=== PATIENT | female | born 1975 | race Caucasian/White ===

== ENCOUNTER 2019-01-24 14:21 | Inpatient (IN) | payer BC ==
[~2019-01-24] VITALS: Ht 170.2 cm; Wt 80.1 kg
--- NOTE | ~2019-01-24 | DS ---
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 She has had four previous episodes of acute diverticulitis and one time requiring hospitalization. This has been proven by CT scan findings in the past. She has undergone colonoscopy by Dr. Mynor Lutz approximately 2 years ago, confirming diverticulosis and no evidence of polyps or other problems. She recently had the onset of left lower abdominal pain, very significant and severe with impaired ability to have oral intake. She got to the point where she could really not even tolerate liquids, let alone soft food. She presented to emergency room where she was evaluated by Dr. Blankenship. She is noted to have dehydration clinically and tenderness in the left lower abdomen and CT scan was performed showing acute diverticulitis, but no sign of abscess. She is admitted for further evaluation and care. PERTINENT PHYSICAL EXAMINATION: GENERAL: Showed a pleasant white woman who looks clinically very dehydrated. HEENT: Tongue is markedly dry. Trachea is midline. CHEST: Clear. HEART: Regular without murmur. ABDOMEN: Mildly obese and mildly distended. She had marked tenderness in the left mid abdomen. No sign of ascites proper. LABORATORY DATA: White count was 10.7. Beta hCG negative. Hematocrit 39.1. Urinalysis normal. CT scan showed no sign of peridiverticular abscess, but a thickened area of the mid descending colon as well as inflammation of the mesentery itself. HOSPITAL COURSE: She was admitted and given intravenous antibiotics, Levaquin and Flagyl. Aggressive fluid resuscitation was undertaken as well. She did have marked improvement even on the first day. She still had tenderness of the left abdomen. Her white count was down to 6.7. She was allowed clear liquids ,which she tolerated well and advanced to a low-fiber diet. She was transitioned to oral antibiotic, Flagyl and Levaquin. She did have some developing thrush and was treated with Diflucan 200 mg tablet. By time of discharge, her pain is markedly improved. Her tenderness has essentially resolved. We had a discussion regarding the consideration that this represents her fifth episode PATIENT NAME: PAYAL LOJA DISCHARGE SUMMARY DATE OF : 79 REPORT #: [id number] PHYSICIAN: OLU ALCANTARA MD PCP: YOLANDE LA PAC REPORT IS CONFIDENTIAL AND NOT TO BE RELEASED WITHOUT AUTHORIZATION [facility] [address] [place], [place] [address] Draft of significant diverticulitis and a consideration for elective left colectomy. She is very interested in that idea. We will allow her diverticular process to settle and I will see her back in the office in a few weeks. She will maintain a low-fiber diet for two weeks. She will have a few more days of antibiotics as well. If she has problems in the meantime, she will let me know at once. DISCHARGE MEDICATION: Include: 1. Levaquin 500 mg p.o. daily #10. 2. Diflucan 200 mg tablets one tablet p.o. daily #5. 3. Flagyl 250 mg p.o. t.i.d. #15. 4. Tylenol 650 p.o. q.6 hours as needed #30, refill zero. 5. She will continue with Celexa one 10 mg tablet daily, trazodone 100 mg half tab at bedtime if needed for sleep, and albuterol inhaler two puffs q.6 hours as needed for shortness of breath. She is advised that there may be some interaction with trazodone and Diflucan and to avoid the trazodone if possible for the time being. DISCHARGE DIAGNOSIS: Acute recurrent diverticulitis, left colon. MD JAGDISH Rogers/REX /[id number] cc: Yolande MONTES Copies: ~ PATIENT NAME: PAYAL LOJA DISCHARGE SUMMARY DATE OF : 79 REPORT #: [id number] PHYSICIAN: OLU ALCANTARA MD PCP: YOLANDE LA PAC REPORT IS CONFIDENTIAL AND NOT TO BE RELEASED WITHOUT AUTHORIZATION
[~2019-01-24 14:21] MED LIST: ADDERALL 5 MG TA5 MG PO; ADVAIR 250-501 EACH INH; AZITHROMYCIN500 MG PO; CELEXA10 MG PO; CIPRO500 MG PO; COLACE100 MG PO; FLAGYL500 MG PO; PERCOCET 5-3251 EACH PO; QVAR7.3 G1 INH; SPACE CHAMBER1 EACH MC
[2019-01-24] MEDS ORDERED: TRAZODONE HCL100 MG PO (14:38)
--- NOTE | 2019-01-24 20:30 | NUR ---
PT ARRIVED TO FLOOR VIA WHEELCHAIR, TRANSFERED TO BED WITHOUT ASSISTANCE. PT REPORTS PAIN, 3/10, STATES THAT THIS IS TOLERABLE. PT REPORTS NAUSEA, DECLINES NEEDING MEDICATION FOR NAUSEA AT THIS TIME. STATES THAT EATING MAY HELP, THAT SHE IS "STARVING". PT PROVIDED WITH JELLO, APPLE JUICE, AND ICE WATER. PT WITH HYPOACTIVE BT'S, REPORTS ABD TENDERNESS, MILD DISTENSION NOTED. PT UP TO USE THE BATHROOM INDEPENDENTLY. DENIES FURTHER NEEDS AT THIS TIME. PT ORIENTED TO ROOM AND UNIT. DISCUSSED PLAN OF CARE FOR THIS SHIFT. PT STATES UNDERSTANDING, AGREES TO USE CALL LIGHT FOR NEEDS.
--- NOTE | 2019-01-24 22:25 | NUR ---
PT RESTING IN BED WATCHING TV ON HER LAPTOP. PT STATES THAT HER NAUSEA IS INCREASED AT THIS TIME, HAD DONE BETTER FOR A BIT AFTER EATING BUT IS NOW INCREASED. PT REQUESTS PRN FOR NAUSEA, ZOFRAN ADMINISTERED. PT REPORTS PAIN IS STILL TOLERABLE 3/10, LONG SHE DOES NOT MOVE. PT ENCOURAGED TO CALL FOR PRNS NEEDED. PT STATES UNDERSTANDING. DENIES FURTHER NEEDS AT THIS TIME. CALL LIGHT IN REACH.
--- NOTE | 2019-01-24 23:23 | NUR ---
PT UTILIZES CALL LIGHT, REQUESTS PRN PAIN MEDICATION FOR PAIN, 10/19 TO ABDOMEN. PRN MORPHINE ADMINISTERED PER PT REQUEST AFTER DISCUSSION OF MEDICATION AVAILABILITY. PT STATES THAT NAUSEA IS RESOLVED AT THIS TIME. DENIES FURTHER NEEDS. CALL LIGHT IN REACH.
--- NOTE | 2019-01-25 02:09 | NUR ---
PT RESTING IN BED WITH EYES CLOSED. RESPIRATIONS EVEN AND UNLABORED. PT APPEARS TO BE SLEEPING, DOES NOT WAKE WHEN PLATING MACHINE OPERATOR OPENS THE DOOR. CALL LIGHT IN REACH.
--- NOTE | 2019-01-25 02:53 | NUR ---
PT RESTING IN BED, WAKES EASILY WHEN HOOP PUNCHER ENTERS THE ROOM. PT DENIES PAIN, NAUSEA, AND SOB. BT'S ACTIVE. PT REPORTS ABDOMEN LESS TENDER THAN AT PREVIOUS ASSESSMENT. MILD DISTENSION NOTED. PT DENIES FURTHER NEEDS AT THIS TIME. CALL LIGHT IN REACH.
--- NOTE | 2019-01-25 05:43 | NUR ---
PT SLEPT WELL THIS SHIFT. TYLENOL AND MORPHINE FOR PAIN. ZOFRAN FOR NAUSEA. BT'S ACTIVE. ABD TENDER, MILD DISTENSION. IVF INFUSING. UO QS. IND IN ROOM.
--- NOTE | 2019-01-25 06:06 | NUR ---
PT RESTING IN BED AWAKE, LAB AT BEDSIDE FOR BLOOD DRAW. PT RATES PAIN 2-3/10. PRN TYLENOL ADMINISTERED. JELLO PROVIDED. PT DENIES FURTHER NEEDS. CALL LIGHT IN REACH.
--- NOTE | 2019-01-25 07:36 | NUR ---
RECIEVED BEDSIDE REPORT FROM BILL HORNE. PT IS AWAKE AND ALERT IN BED. HER PAIN IS BETTER CONTROLLED, NAUSEA WELL CONTROLLED. NEW BAG OF IVF HUNG DURING BEDSIDE REPORT. HAND DRY CLEANER LEFT MS FOR DR ALCANTARA TO CALL WHEN HE IS AVAILABLE RE: ABX.
--- NOTE | 2019-01-25 07:45 | NUR ---
PACU CALLED TO LEAVE MESSAGE FOR TO CALL THE M/S UNIT IN REGARDS TO PT NOT HAVING ABX ORDERS ON JUL.
--- NOTE | 2019-01-25 08:30 | NUR ---
SPOKE WITH DR QUINTON KANG, HE WILL ADD TO MAR.
--- NOTE | 2019-01-25 09:30 | NUR ---
DISCHARGE PLANNING ASSESMENT DONE. NO REPORTED NEEDS AT THIS TIME. GOOD FAMILY SUPPORT. PATIENT STATED " I WOULD LIKE SOME COFFEE PLEASE, IS THAT CONSIDERED A CLEAR LIQUID?" REPORTED TO CHARGE NURSE FIOR, WHO OKAYED A CUP OF COFFEE. THEN WHEN DR. ALCANTARA WAS AVAILABLE VERIFIED IF PATIENT ABLE TO DRINK COFFEE A CLEAR LIQUID. DR. ALCANTARA VERBALIZED " OKAY TO HAVE COFFEE, IF OU CAN LIFT IT UP AND DWAYNE SEE THROUGH IT THEN SHOULD BE OKAY, NOTHING LIKE HOT CHOCHLATE."PROVIDED PATIENT WITH CUP OF COFFEE.
[2019-01-25] MEDS ORDERED: VENTOLIN HFA18 GM INH (09:57)
--- NOTE | 2019-01-25 11:22 | NUR ---
PT HAS BEEN UP WALKING AROUND. IS NOW UP IN CHAIR. TOLERATING CLEAR LIQUIDS WELL. STATES HER STOMACH IS SLIGHTLY MORE TENDER WITH THE INCREASE IN MOVEMENT, BUT IS TOLERABLE AT THIS TIME.
--- NOTE | 2019-01-25 11:39 | NUR ---
Medications reconciled using pharmacy records and patient interview
--- NOTE | 2019-01-25 14:14 | NUR ---
PT STATES HER NAUSEA IS NOW WELL CONTROLLED. STARTED 1400 DOSE OF FLAGYL.
--- NOTE | 2019-01-25 14:48 | NUR ---
VISITED WITH PT SHE AMBULATED IN [place]. SHE STATED THAT SHE FEELS SHE IS IMPROVING, AND HAS TALKED TO DR ALCANTARA ABOUT POSSIBLE SURGERY. FLAIR-UPS SEEM TO CONTINUE TO GET WORSE EACH TIME. HER IS NOW IN [place]-PT SEEMS TO BE TAKING IT IN STRIDE. HAD PRAYER WITH PT, WILL FOLLOW NEEDED
--- NOTE | 2019-01-25 19:59 | HP ---
[facility] [address] [place], [place] [address] Signed ADMISSION DATE: 01/24/2019 REASONS FOR ADMISSION: Acute recurrent diverticulitis and dehydration. 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 She has had four previous episodes of acute diverticulitis and one time requiring hospitalization for that. This has been proven in the past by CT scan and she has undergone colonoscopy by Dr. Mynor Lutz approximately 2 years ago confirming diverticulosis, but no evidence of polyps or other problem. She recently (Friday) had the onset of left lower abdominal pain, which was rather significant, severe, and impaired her ability to have oral intake. As it is round up a week, she modified her diet by primarily avoiding solid food intake in a "soft" diet and this was still not effective in improving her situation. She presented to the emergency room at approximately 0230 today and was evaluated by Dr. Ochoa Pérez. She is noted to have dehydration clinically and tenderness in the left lower abdomen. A CT scan was performed, which shows acute diverticulitis, but no sign of peridiverticular abscess or other intraabdominal abnormality. She has no evidence of free air. Examination shows her to be markedly dehydrated and with little hope that she will be able to orally rehydrate herself as well as significant tenderness in the left lower abdomen. On that basis, she was admitted for further evaluation and care. PAST MEDICAL HISTORY: Includes diverticulitis episodes in the past as previously described. She has had 2 children, ages 23 and 20 now and has had bilateral tubal ligation. She uses alcohol approximately 4 times a week. She has never smoked. SOCIAL HISTORY: She is . Her currently is out of state on a fishing trip. MEDICATIONS: At admission include trazodone 100 mg p.o. q.8 hours for insomnia and citalopram (Celexa) 5 mg p.o. daily. She occasionally uses an albuterol inhaler, though has not in recent times. She does consider herself to have asthma though uncommon. ALLERGIES: She has allergies to penicillin G causing anaphylaxis in July 2015 as well as sulfa medication causing rash. Electronically Signed By: OLU ALCANTARA MD 01/[birth year]/191958 PATIENT NAME: PAYAL LOJA HISTORY AND PHYSICAL DATE OF : [birth year] REPORT #: [id number] PHYSICIAN: OLU ALCANTARA MD PCP: YOLANDE LA [facility] REPORT IS CONFIDENTIAL AND NOT TO BE RELEASED WITHOUT AUTHORIZATION [facility] [address] [place], [place] [address] Signed REVIEW OF SYSTEMS: She denies any shortness of breath or chest pain. She has had no wheezing. She has had no blood per rectum or hematemesis. Her pain is left-sided entirely. She has nausea, but no vomiting. She does not feel that she can eat or swallow fluids effectively at this time. PHYSICAL EXAMINATION: GENERAL: Pleasant white woman who looks clinically dehydrated. HEENT: Tongue is markedly dry. Trachea is midline. She has no hoarseness. There is no thyromegaly. CHEST: Clear. HEART: Regular without murmur. ABDOMEN: Mildly obese. Mildly distended. She has marked tenderness in left mid abdomen. There is no sign of ascites proper. EXTREMITIES: Showed no clubbing, cyanosis, or edema. LABORATORY STUDIES: Show a white count of 10.7, hematocrit 39.1, and platelets 286,000. Chem profile is normal. Beta-hCG is negative. Urinalysis is normal. No sign of infection or bacteria. I have reviewed the CT scan myself. There is no sign of peridiverticular abscess. There was a thickened area of the mid descending colon as well as inflammation of the mesentery itself. ASSESSMENT AND PLAN: The patient has acute diverticulitis with dehydration and poor ability to tolerate oral intake. This has been going on several days. She needs to be admitted for fluid resuscitation and continued use of parenteral antibiotics. She has already been started on Levaquin and Flagyl under the direction of Dr. Pérez. That is a good combination particularly in light of her allergy profile. I discussed with her the fact that this is her 5th episode of significant diverticulitis and consideration might be well made for elective sigmoid resection. She has been thinking about that already and is quite amenable to it at this point. For now, she will be managed for her acute diverticulitis problem and we will allow some clear liquids once she is able, but primarily rely upon IV antibiotics and IV fluid resuscitation at this point. Electronically Signed By: OLU ALCANTARA MD 01/25/191958 PATIENT NAME: PAYAL LOJA HISTORY AND PHYSICAL DATE OF : [birth year] REPORT #: [id number] PHYSICIAN: OLU ALCANTARA MD PCP: YOLANDE LA PAC REPORT IS CONFIDENTIAL AND NOT TO BE RELEASED WITHOUT AUTHORIZATION [address] [address] Signed Olu Alcantara MD JM/MODL /[id number] cc: MD Oh Philip PA Copies: OCHOA PÉREZ MD ~ Electronically Signed By: OLU ALCANTARA MD [birth year]19 1959 PATIENT NAME: PURVIPAYAL HISTORY AND PHYSICAL DATE OF : 79 REPORT #: [id number] PHYSICIAN: OLU ALCANTARA MD PCP: YOLANDE LA PAC REPORT IS CONFIDENTIAL AND NOT TO BE RELEASED WITHOUT AUTHORIZATION
--- NOTE | 2019-01-25 20:20 | NUR ---
CHARGE NURSE REPORT RECEIVED FROM NEW CHILDRESS RN. PT WITH NO NEEDS AT THIS TIME.
--- NOTE | 2019-01-25 21:58 | NUR ---
PT ASSESSMENT COMPLETE. PT DENIES PAIN, NAUSEA, OR SOB. BT'S ACTIVE. PT REPORTS SLIGHT L SIDED ABD TENDERNESS, STATES THIS IS MUCH IMPROIVED. MILD ABD DISTENSION PRESENT. PT INDEPENDENT IN ROOM. DENIES FURTHER NEEDS AT THIS TIME. SCHEDULED MEDICATIONS ADMSINISTERED. CALL LIGHT IN REACH.
--- NOTE | 2019-01-25 23:37 | NUR ---
PT RESTING IN BED WITH EYES CLOSED. RESPIRATIONS EVEN AND UNLABORED. PT APPEARS TO BE SLEEPING, DOES NOT WAKE WHILE EMS COORDINATOR OPENS THE DOOR. CALL LIGHT IN REACH.
--- NOTE | 2019-01-26 01:45 | NUR ---
PT UTILIZES CALL LIGHT FOR IV PUMP ALARMING. PT UP TO USE BATHROOM NIDEPENDENTLY, TOLERATED WELL. PT ASSESSMENT COMPLETE. PT DENIES PAIN, NAUSEA, OR SOB. PT STATES "I WISH I COULD HAVE A BM". PT REPORTS PASSING FLATUS, BT'S ACTIVE. VERY MILD ABD DISTENSION NOTED. PT STATES L ABD IS TENDER, BUT VERY MUCH IMPROVED FROM PREVIOUS. PT DENIES NEEDS AT THIS TIME. CALL LIGHT IN REACH.
--- NOTE | 2019-01-26 03:30 | NUR ---
PT UP AMBULATING IN THE PRADO X1 LAP. DENIES NEEDS AT THIS TIME, STATES THAT SHE CANNOT SLEEP.
--- NOTE | 2019-01-26 05:53 | NUR ---
PT SLEPT OFF AND ON THIS SHIFT. AMBULATED IN PRADO X 2. NO PAIN OR NAUSEA MEDICATION REQUIRED. BT'S ACTIVE. FLATUS. AMB SLIGHTLY TENDER, IMPROVED. VERY MILD DISTENSION. IV FLUIDS INFUSING. FLAGUL/LEVAQUIN. UO QS. IND IN ROOM. POSSIBLE DC TODAY.
--- NOTE | 2019-01-26 07:00 | NUR ---
BEDSIDE HANDOFF REPORT RECEIVED FROM HUMAN RESOURCES CLERK RN. PT RESTING IN BED. IV FLUIDS INFUSING D5LR AT 100. PT DENIES NEEDS AT THIS TIME.
--- NOTE | 2019-01-26 07:55 | NUR ---
PT SITTING IN CHAIR, WALKED IN PR[place] THIS AM. PT ON ROOM AIR, LUNG SOUNDS CLEAR, DENIES SOB. PT RATING ABD PAIN 1/10 TO LUQ, DENIES NAUSEA. IV FLUIDS INFUSING D5LR AT 100 L/HR, IV LEVAQUIN INFUSING. BOWEL TONES ACTIVE. CMS INTACT, WITHOUT EDEMA. DISCUSSED PLAN OF CARE FOR THE DAY, PT DENIES OTHER NEEDS AT THIS TIME.
--- NOTE | 2019-01-26 09:00 | NUR ---
PT SALINE LOCKED FOR SHOWER AND THE FOR WALK IN PRADO.
--- NOTE | 2019-01-26 09:51 | NUR ---
PT COMPLAINT OF NAUSEA, STATES SHE THINK S THE LEVAQUIN MAKES HER FEEL SICK, 8 MG IV ZOFRAN GIVEN. IV FLUIDS RESUMED. PT DENIES OTHER NEEDS AT THIS TIME.
--- NOTE | 2019-01-26 13:33 | NUR ---
PT RESTING IN BED. PT HAS NO NEEDS AT THIS TIME.
--- NOTE | 2019-01-26 14:00 | NUR ---
IV SITE TENDER, INFILTARTED. DISCUSSED WITH DR. ALCANTARA, ORDER TO DC IV FLUIDS AND OK FOR NO IV ACCESS. IV CATHR REMOVED, TIP INTACT.
--- NOTE | 2019-01-26 14:09 | NUR ---
PT DRESSED, HAS BEEN AMBULATING IN HALLWAY. PT PLANNING ON DC TODAY, HER DAUGHTER IS TO BRING HER FRESH CLOTHES AND TAKE HER HOME. PT IS TO HAVE DISCUSSION WITH DR ALCANTARA REGARDING POSSIBLE SURGERY. PT IS STRESSED ABOUT PICKUP THAT IS IN THE SHOP WITH POSSIBLE BIG REPAIR BILL. PT REQUESTED PRAYER AND WILL FOLLOW NEEDED
--- NOTE | 2019-01-26 17:31 | NUR ---
PT RESTING IN BED. PT HAS NO NEEDS AT THIS TIME.
--- NOTE | 2019-01-26 17:43 | NUR ---
PT RESTING IN BED. PT TEMP 99.1, DENIES CHILLS OR BODY ACHES. PT GIVEN SCHEDULED FLAGYL. PT DENIES OTHER NEEDS AT THIS TIME.
--- NOTE | 2019-01-26 17:59 | NUR ---
PT ADVANCED TO LOW FIBER DIET, TOLERATING WELL, NAUSEATED AFTER LEVAQUIN THIS AM. PT ON ROOM AIR, LUNG SOUNDS CLEAR. PT WITH MINIMAL PAIN, HAS NOT REQUIRED PAIN MEDICATION. BOWEL TONES ACTIVE, HAD BM TODAY. PT INDEPENDENT IN ROOM, WALKED IN PRADO TRHOUGH DAY. WIHTOUT IV ACCESS.
--- NOTE | 2019-01-26 20:08 | NUR ---
PATIENT IN NO DISTRESS, SITTING IN HER CHAIR WATCHING HER COMPUTER, NO NEEDS AT THIS TIME. CALL LIGHT IN REACH. PATIENT IDEPENDENT IN ROOM.
--- NOTE | 2019-01-27 00:15 | NUR ---
PATIENT RESTING QUIETLY IN BED. LIGHTS ARE OFF. RESPIRATIONS EVEN AND REGULAR AT 16 AND LAYING ON HER RIGHT SIDE. EYES CLOSED AND CALL LIGHT IN REACH.
--- NOTE | 2019-01-27 02:16 | NUR ---
PATIENT RESTING ON HER RIGHT SIDE, RESPIRATIONS REGULAR AND EVEN, EYES CLOSED AND CALL LIGHT IN REACH.
--- NOTE | 2019-01-27 04:00 | NUR ---
PATIENT IS STILL RESTING ON HER RIGHT SIDE WITH EVEN AND EQUAL RESPIRATIONS, CALL LIGHT IN REACH, EYES CLOSED.
--- NOTE | 2019-01-27 05:37 | NUR ---
PATIENT STILL RESTING QUIETLY AND HAS HAD NO ISSUES THROUGH THE NIGHT AND PLANS TO GO HOME TODAY.
--- NOTE | 2019-01-27 07:00 | NUR ---
BEDSIDE HANDOFF REPORT REEIVED FROM BPM ARCHITECT RN. PT RESTING IN BED. PAIN REPORT OF NO PAIN. PT DENIES NEEDS AT THIS TIME.
--- NOTE | 2019-01-27 08:54 | NUR ---
PT SITTING IN CHAIR. PT ON ROOM AIR, LUNG SOUNDS CLEAR. PT DENIES PAIN, TOELRATED LOW FIBER BREAKFAST, DENIES NAUSEA. BOWEL TONES ACTIVE. PT WITHOUT IV ACCESS, DR. ALCANTARA VERBAL ORDER TO CHANGE PEPCID TO PO. CMS INTACT, WITHOUT EDEMA. DISCUSSED PLAN OF CARE FOR THE DAY, PLAN FOR DISCHARGE LATER TODAY. PT DENIES OTHER NEEDS AT THIS TIME.
[2019-01-27] MEDS ORDERED: FLUCONAZOLE200 MG PO (09:02)
[2019-01-27] MEDS ORDERED: TYLENOL325 MG PO (09:02)
[2019-01-27] MEDS ORDERED: LEVOFLOXACIN500 MG PO (09:02)
[2019-01-27] MEDS ORDERED: METRONIDAZOLE250 MG PO (09:02)
--- NOTE | 2019-01-27 10:10 | NUR ---
PATIENT IS GOING HOME TODAY ON A LOW-FIBER DIET FOR 2 WEEKS. SHE STATES THIS IS HER 5TH EPISODE WITH DIVERTICULITIS. PROVIDED HER A HANDOUT ON LOW-FIBER NUTRITION THERAPY. EXPLAINED BRIEFLY THE FOODS RECOMMENDED AND FOODS NOT RECOMMENDED. SHE CANNOT TOLERATE DAIRY PRODUCTS. SHE OFTEN EATS ALMOND YOGURT, SO I TOLD HER TO CHECK THE LABEL JUST TO MAKE SURE NO FIBER HAS BEEN ADDED. SHE CAN CALL ME IF SHE HAS ANY QUESTIONS.
--- NOTE | 2019-01-27 10:44 | NUR ---
PT DRESSED AND WAITING SOMEWHAT PATIENTLY FOR DC ORDERS. SHE FEELS MUCH BETTER TODAY AND HAS DECIDED TO HAVE SURGERY BEFORE THE END OF THE YEAR. HER FRIEND IS HERE TO TAKE HER HOME. KIERRA ALVAREZ WILL FOLLOW NEEDED
== END 2019-01-27 10:20 | disposition home or self-care (01) | DRG 392 ==
LOC: ED 14:21 → MS 19:23
PROVIDERS: ADMIT Surgery
DX: K57.32 Diverticulitis of large intestine without perforation or abscess without bleeding (principal); E86.0 Dehydration; B37.9 Candidiasis, unspecified; E66.9 Obesity, unspecified; G47.00 Insomnia, unspecified; Z79.899 Other long term (current) drug therapy; Z88.0 Allergy status to penicillin; Z88.2 Allergy status to sulfonamides; Z68.27 Body mass index [BMI] 27.0-27.9, adult
CPT/HCPCS: 36415; 74177; 80053; 81001; 84703; 85025; 96361; 96374; 96375; 99285-25; J1644; J1956; J2270; J2405; J7030; J7120; J7121; Q9967

== ENCOUNTER 2019-03-31 14:00 | Inpatient (IN) | payer BC ==
[~2019-03-31] VITALS: Ht 170.2 cm; Wt 78.0 kg
[~2019-03-31 14:00] MED LIST changes: +FLUCONAZOLE200 MG PO; +LEVOFLOXACIN500 MG PO; +METRONIDAZOLE250 MG PO; +TRAZODONE HCL100 MG PO; +TYLENOL325 MG PO; +VENTOLIN HFA18 GM INH
--- NOTE | 2019-04-13 12:18 | NUR ---
PT ALERT, ORIENTED AND SUPPORTED BY HER FAMILY. PT IS GETTING ANXIOUS, HAS BEEN PLANNING FOR THIS AND THE REALITY IS BEGINNING TO SET IN. HAD PT TAKE CLEANSING BREATHS, OFFERED A PRAYER AND GAVE ENCOURAGEMENT. WILL FOLLOW NEEDED
--- NOTE | 2019-04-13 14:12 | NUR ---
04/13/19 1412 Hannah Foster 1316 PT ARRIVED IN PACU NON RESPONSIVE WITH OPA IN PLACE. 1323 PT REACTIVE. OPA REMOVED. 1325 OFIRMEV 1GM GIVEN IVP PER ANESTHESIA REQUEST. 1330 PT CRYING AND ROLLING ONTO L SIDE C/O ABD PAIN. FENTANYL 50MCG GIVEN IVP. 1340 COUGHING. PILLOW GIVEN TO BRACE ABD. TAKING ICE CHIPS FOR SORE THROAT. C/O ABD PAIN AND MOVING AROUND IN BED. FENTANYL 50MCG GIVEN IVP. 1345 ANESTHESIA AT BEDSIDE. NO NEW ORDERS. 1354 C/O NAUSEA. PHENERGAN 12.5MG GIVEN SLOW IVP. DR AT BEDSIDE TALKING TO PT. 1400 PT RESTING. REU.
--- NOTE | 2019-04-13 14:50 | NUR ---
PT TO FLOOR WITH BILL GRAYSON. PT ASLEEP BUT ANSWERS QUESTIONS WITH EYES CLOSED. RATES PAIN 4\10 BUT IS NAUSEOUS. SCOP PATCH IN PLACE. PLACED ON PULSE OX AND VS OBTAINED. DECLINED SCD'S FOR A LITTLE WHILE FOR ITCHING.
--- NOTE | 2019-04-13 15:44 | NUR ---
PT STATES HER PAIN IS CLIMBING, GIVEN TORADOL.
--- NOTE | 2019-04-13 17:32 | OR ---
[facility] [address] [place] [address] Signed DATE OF OPERATION: 04/13/2019 SURGEON: Olu Alcantara MD PREOPERATIVE DIAGNOSIS: Chronic recurrent bouts of acute sigmoid diverticulitis. POSTOPERATIVE DIAGNOSES: Chronic recurrent bouts of acute sigmoid diverticulitis. PROCEDURES PERFORMED: 1. Left colectomy with side -to-end coloproctostomy. 2. Mobilization of splenic flexure. ANESTHESIA: General endotracheal; Nicolas Mary Anne, BARBERING INSTRUCTOR; and TAP block preoperatively. 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 Hospitalization with IV antibiotics and so forth had been required in the past. Colonoscopy was performed yesterday showing multiple small diverticula of the sigmoid and left colon, but no sign of neoplasm, colitis, or cancer. She is admitted at this time to undergo left colectomy with side-to-end coloproctostomy for chronic recurrent acute diverticulitis of sigmoid and descending colon area. She understands as does her and family. The risks of bleeding, infection, anastomotic failure, and of course failure to relieve her pain symptoms. She understands that she wished to proceed. FINDINGS: The abdomen showed no sign of abscess, ascites, or carcinomatosis. The small bowel loops were normal. The sigmoid colon and the distal descending colon had areas of chronic inflammation and some thickening near the wall of the colon indicative of prior diverticulitis. Mobilization of splenic flexure was undertaken in a dedicated way to allow for additional resection of left colon to allow for a tension-free side-to-end coloproctostomy. The pelvic organs were identified as normal including both ovaries, tubes, and the uterus itself. The gallbladder was visualized as normal. There were no other findings of concern. DESCRIPTION OF PROCEDURE: Electronically Signed By: OLU ALCANTARA MD 04/13/19 1732 PATIENT NAME: PAYAL LOJA OPERATIVE REPORT DATE OF : 79 REPORT #: [id number] PHYSICIAN: OLU ALCANTARA MD PCP: YOLANDE LA PAC REPORT IS CONFIDENTIAL AND NOT TO BE RELEASED WITHOUT AUTHORIZATION [facility] [address] [place], [place] [address] Signed The patient was brought to the operating room and given a general endotracheal anesthetic. A TAP block was placed by the apprentice machinist outside. Preoperative antibiotics clindamycin and Flagyl were given. This was based on her allergy profile. A Chandler catheter was placed. The abdomen was then prepared with chlorhexidine solution and draped sterilely. An incision was made inferior to the umbilicus intended to maintain a small incision. She had a thick abdominal wall pannus. The abdomen was entered without problem. The small bowel loops appeared normal. There was no sign of acute inflammatory change of those. A Bookwalter retractor with a small ring was attached to the table. The small bowel was swept to the right side of the abdomen for examination of the colon. There appeared to be chronic inflammatory change of the descending colon in the distal portion of the sigmoid as well. There was no sign of fistulization or other problems. Small bowel was packed to the right side of the abdomen and the white line of Toldt was incised and mobilization of the sigmoid and left colon undertaken. Splenic flexure was rather high-riding. The area of prior inflammation was not just in the sigmoid, but in the distal descending colon and a margin well cephalad to that was needed of course. Great attempts were made to mobilize the splenic flexure with meticulous care through the small incision, but ultimately the incision had to be extended to just above the umbilicus in fact. This allowed for safer mobilization of splenic flexure, which was accomplished without problem allowing for a completely tension-free left colon. Distalward dissection was undertaken along the white line of Toldt, mobilizing more fully the sigmoid colon. The coalescence of the teniae indicating the rectum itself was identified and marked with a suture. An area of the mid to upper descending colon was marked with a suture as well, which was considered free of inflammatory change and appropriate for transection. Mesentery was scored with electrocautery and sequential application of tonsil clamps to the vascular arcades of the left colon and sigmoid was undertaken securing the vascular pedicles with 2-0 silk ties doubly applied to the major pedicles. Wide and deep resection of the mesentery was not required based on the underlying pathology, but a generous specimen was obtained. A AMBER stapling device, 55 mm in length was used to transect the mid to upper descending colon. Further dissection distalward allowed for freeing of the rectal mesentery to the area consider the upper rectum. The upper rectum was secured transversely with a right angle bowel clamp. The area was isolated and the bowel transected. A completely tension-free anastomosis was possible since the splenic flexure had been mobilized and the remnant proximal left colon was made to lie in juxtaposition to the rectal stump without tension. The specimen was examined on the back table and found to have numerous diverticula. No sign of neoplasm. Photographs were taken. Plans were then made for anastomosis. A side-to-end coloproctostomy was undertaken with a two layer technique of interrupted 3-0 silk sutures. The stapled end of the proximal Electronically Signed By: OLU ALCANTARA MD 04/13/19 5508 PATIENT NAME: PAYAL LOJA OPERATIVE REPORT DATE OF : 79 REPORT #: [id number] PHYSICIAN: OLU ALCANTARA MD PCP: YOLANDE LA PAC REPORT IS CONFIDENTIAL AND NOT TO BE RELEASED WITHOUT AUTHORIZATION [facility] [address] [place], [place] [address] Signed segment had been oversewn with interrupted 3-0 silk suture to avoid blowout of the stump itself. A tension-free anastomosis was noted. The mesenteric defect was reapproximated with running 3-0 silk suture. Irrigation was undertaken and isolating laparotomy packs removed. Through a left lower quadrant incision, a 7 mm flat Boaz drain was placed. There was some bleeding on the inner table of the abdominal cavity and this was explored further and secured with electrocautery and a Vicryl suture. By this point, the drain site was hemostatic. The drain was placed in the left pericolic gutter. Excess irrigation fluid was suctioned free. The omentum was returned to a natural position after removal of laparotomy packs and small bowel similarly left in a natural position. Attention was then turned towards closure. The midline fascia was reapproximated with running bidirectional #1 PDS suture. Subcutaneous tissue was copiously irrigated and skin closed with running subcuticular 3-0 Vicryl. Steri-Strips were applied. Mepilex silver sponge dressing was applied to the midline incision as well as the exit site of the drain. Drain was attached to bulb suction. The patient was ultimately extubated and transferred to recovery room in good condition having suffered no complications. Sponge, needle, and instrument counts reported as correct x3. Not mentioned previously was an elongated but normal-appearing appendix without palpable fecalith. Olu Alcantara MD JM/MODL /[id number] cc: Yolande La PA-C Copies: ~ Electronically Signed By: OLU ALCANTARA MD 04/13/19 1732 PATIENT NAME: PAYAL LOJA OPERATIVE REPORT DATE OF : 79 REPORT #: [id number] PHYSICIAN: OLU ALCANTARA MD PCP: YOLANDE LA PAC REPORT IS CONFIDENTIAL AND NOT TO BE RELEASED WITHOUT AUTHORIZATION
--- NOTE | 2019-04-13 18:17 | NUR ---
EMPTIED PAULINO FOR 20 ML BLOOD. WILLIAM LIGHT YELLOW 550. ABD DRESSING UNCHANGED. MODERATE AMT BLOOD. STATES SHE FEELS BETTER, HAS USED .5 LOADING DOSE AND ONE .3MG PUSH. APPEARS TO BE RESTING COMFORTABLY. IN ROOM. VS STABLE.
--- NOTE | 2019-04-13 19:25 | NUR ---
IN ROOM FOR REPORT, PT IS AWAKE IN BED WITH IN THE ROOM. SHE DENIES NEEDS AT THIS TIME. CALL LIGHT IS CLOSE.
--- NOTE | 2019-04-13 22:30 | NUR ---
IN ROOM TO ADMINISTER MEDICATIONS AND ASSESS PT. MIDLINE INCISION HAS SOME DRIED DRAINAGE NOTED ON LEFT LATERAL SIDE. PAULINO DRAIN HAS SOME SEROSANGUINOUS DRAINAGE NOTED IN THE BULB. PT REPORTS NUMBNESS IN HER LOWER ABDOMEN BUT CAN FEEL PAIN IN THE UPPER ABDOMEN AT THE TOP OF HER INCISION. CPOX IS IN PLACE BUT PT IS DOING WELL ON RA. HER IV HAS INFILTRATED AND WILL HAVE TO HOLD OFF TORADOL AND IV ABX UNTIL WE CAN GET ONE STARTED. SHE REPORTS BEING A HARD IV START. BOWEL TONES ARE ACTIVE. PT DENIES FURTHER NEEDS AT THIS TIME. CALL LIGHT IS CLOSE AND IS IN THE ROOM.
--- NOTE | 2019-04-14 00:02 | NUR ---
IV ABX WERE DELAYED D/T IV INFILTRATION. THEY ARE NOW RUNNING. PT DENIES NEEDS AT THIS TIME. CALL LIGHT IS CLOSE AND IV AND LIGHTOUT EXAMINER ARE INFUSING FINE.
--- NOTE | 2019-04-14 03:16 | NUR ---
ADMINISTERED TYLENOL FOR 4/10 PAIN PT WOULD LIKE TO AVOID THE ASSIGNMENT DESK EDITOR MUCH POSSIBLE. DRESSING REMAINS UNCHANGED AND 10MLS EMPTIED FROM PAULINO DRAIN. PT IS NOT PASSING GAS YET. SHE DID GET OUT OF BED IN THE ROOM TO MOVE AROUND BUT HAS NOT AMBULATED IN THE PRADO YET. SHE DENIES FURTHER NEEDS AT THIS TIME AND CALL LIGHT IS CLOSE.
--- NOTE | 2019-04-14 05:55 | NUR ---
ADMINISTERED PO MOTRIN, PT DENIES NEEDS AT THIS TIME. CALL LIGHT IS CLOSE.
--- NOTE | 2019-04-14 06:20 | NUR ---
PT USED 3.2 MG OF DILAUDID FROM ASSET ACCOUNTANT FOR THE WHOLE SHIFT. SHE HAD TORADOL AND SWITCHED OVER TO MOTRIN THIS AM. SHE ALSO HAD PO TYLENOL. SHE CONTINUES TO HAVE SOME NUMBNESS IN HER LOWER ABD AND DRESSING HAS OLD DRAINAGE NOTED. PAULINO DRAIN PUT OUT 30 MLS THROUGH THE NIGHT SEROSANGUINOUS DRAINAGE. SHE HAS NOT PASSED GAS YET BUT BT'S ARE ACTIVE. SHE WAS UP OUT OF BED LAST NIGHT IN HER ROOM. WILLIAM CATH IN PLACE TO BE DC'D TODAY PER REPORT. SHE IS TOLERATING CLEARS.
--- NOTE | 2019-04-14 06:49 | NUR ---
PT CALLED TO REPORT HER IV HAS INFILTRATED. ALL FLUIDS IN STANDBY AT THIS TIME. WILL GET NEW IV STARTED SOON.
--- NOTE | 2019-04-14 09:00 | NUR ---
Pt resting supine in bed alert and oriented. Call light and h2o in reach. Assessment completed. Am meds administered. pt reports "this key needs to come out now, I moved and tugged on it so I'm worried it came out some." Per pt micky key cath dc'd at this time, no blood noted in key bag or to tip of catheter. Pt denies further needs or concerns.
--- NOTE | 2019-04-14 11:30 | NUR ---
In to speak with pt and spouse. She states she lives with spouse and two adult children. States all her needs will be met. Denies concerns to go home when discharged by
--- NOTE | 2019-04-14 11:49 | NUR ---
PT RESTING IN SEMIFOWLERS POSITION IN BED WATCHING TV. NO NEEDS OR CONCERNS VOICED. PT ALERT AND ORIENTED AND DENIES SOB, NAUSEA OR PAIN.
--- NOTE | 2019-04-14 14:23 | NUR ---
PT REPORTS INCREASED ABDOMINAL PAIN OF 5/10. PRN PO IBUPROFEN ADMINISTERED PER PT REQUEST. CALL LIGHT AND H2O IN REACH. NO OTHER NEEDS OR CONCERNS VOICED.
--- NOTE | 2019-04-14 14:44 | NUR ---
PT UP AMBULATING IN HALLWAY WITH HER DAUGHTER LIEN. PT IS SOMEWHAT SURPRISED BY THE STRENGTH OF PAIN SHE IS ENCOUNTERING. WENT WITH PT TO HER RM, VISITED FOR A MOMENT DIETARY BROUGHT HER IN SOME BROTH. SERENE CAME IN, HAD GOOD VISIT. EXTENDED A BLESSING, WILL FOLLOW NEEDED
--- NOTE | 2019-04-14 18:11 | NUR ---
Pt resting in semifowlers position in bed reports nausea. Prn iv zofran administered per pt request. Call light and h2o in reach.
--- NOTE | 2019-04-14 19:25 | NUR ---
IN ROOM FOR REPORT, PT IS AWAKE IN BED AND DENIES NEEDS AT THIS TIME. CALL LIGHT IS CLOSE.
--- NOTE | 2019-04-14 20:21 | NUR ---
IN ROOM TO ADMINISTER MEDICATIONS AND ASSESS PT. SHE REPORTS PAIN AT 5/10 AND TYLENOL WAS ADMINISTERED. DRESSING REMAINS INTACT AND THERE IS SOME DRIED DRAINAGE. SHE DENIES NEEDS AT THIS TIME. CALL LIGHT IS CLOSE. IS IN THE ROOM.
--- NOTE | 2019-04-14 22:10 | NUR ---
IN ROOM TO ADMINISTER IV ABX. PT WAS JUST UP TO THE RESTROOM AND HER PAIN INCREASED TO 6/10 SO MOTRIN WAS ADMINISTERED. SHE DENIES FURTHER NEEDS AT THIS TIME. CALL LIGHT IS CLOSE.
--- NOTE | 2019-04-14 23:53 | NUR ---
PT IS RESTING WITH EYES CLOSED, RR IS EVEN AND NONLABORED. IV IS INFUSING FINE AND CALL LIGHT IS CLOSE.
--- NOTE | 2019-04-15 02:20 | NUR ---
PT IS RESTING WITH EYES CLOSED, RR IS EVEN AND NONLABORED. CALL LIGHT IS CLOSE AND IV IS INFUSING FINE.
--- NOTE | 2019-04-15 04:00 | NUR ---
IV BUMP WAS BEEPING D/T FLUID BAG COMPLETE. NEW BAG IS NOW INFUSING AND PT RATES PAIN AT A 5/10, ADMINISTERED TYLENOL AND MOTRIN PER PT REQUEST. SHE DENIES FURTHER NEEDS AT THIS TIME. CALL LIGHT IS CLOSE.
--- NOTE | 2019-04-15 06:00 | NUR ---
IN ROOM TO START IV ABX. PT DENIES NEEDS AT THIS TIME. CALL LIGHT IS WITHIN REACH.
--- NOTE | 2019-04-15 06:56 | NUR ---
PT USED 4.2MG ENVIRONMENTAL QUALITY ANALYST DILAUDID THROUGH THE NIGHT. PAULINO DRAIN HAD 120ML OF SEROSANGUINOUS DRAINAGE THROUGH THE NIGHT. SHE HAS D5LR INFUSING AT 125. DRESSING REMAINS UNCHANGED WITH OLD DRAINAGE NOTED.
--- NOTE | 2019-04-15 07:10 | NUR ---
REPORT RECEIVED FROM BILL YOST. PT RESTING SUPINE IN BED EYES CLOSED AND RESPIRATIONS EVEN AND UNLABORED. CALL LIGHT AND H2O IN REACH.
--- NOTE | 2019-04-15 08:40 | NUR ---
IN TO SEE PATIENT PT REPORTS NAUSEA SO PRN ZOFRAN ADMINISTERED ALONG WITH SCHEDULED AM MEDS. AM ASSESSMENT COMPLETED. CALL LIGHT AND H2O IN REACH. NO NEEDS OR CONCERNS VOICED. PT REPORTS PASSING ADINA AND HAVING SMALL BM THIS MORNING.
--- NOTE | 2019-04-15 10:52 | NUR ---
Pt resting supine in bed reports increased pain to abdomen of 6/10 burning to incision. PRN po tylenol and ibuprofen administered. Call light and h2o in reach.
--- NOTE | 2019-04-15 12:00 | NUR ---
MED REC COMPLETE
--- NOTE | 2019-04-15 13:27 | NUR ---
PT RESTING IN SEMIFOWLERS POSITION IN BED ALERT AND ORIENTED WATCHING TV. IVF INFUSING. ASSESSMENT COMPLETED. CALL LIGHT AND H2O IN REACH. NO NEEDS OR CONCERNS VOICED.
--- NOTE | 2019-04-15 13:34 | NUR ---
PT UP AMBULATING IN PRADO WITH SERENE. PT IN INTENSE PAIN AND IS HEADING BACK TO RM AND BED. GAVE ENCOURAGEMENT, AND WILL PASS ALONG TO PTS' RN ABOUT PAIN. WILL FOLLOW NEEDED
--- NOTE | 2019-04-15 14:37 | PATH ---
[facility] [address] [place], [place] [address] Signed SPECIMEN(S): A SIGMOID, RECTUM AND LEFT COLON SPECIMEN SOURCE: A. SIGMOID, RECTUM AND LEFT COLON CLINICAL HISTORY: Diverticular disease. FINAL PATHOLOGIC DIAGNOSIS: Portion of sigmoid colon and rectum, excision: - Diverticulosis. - Focal pericolonic fat necrosis (grossly described chalky nodule). - Negative for malignancy and atypia. VERITOA:cml:C2NR MICROSCOPIC EXAMINATION: Histologic sections of all submitted blocks are examined by light microscopy. These findings, together with the gross examination, support the pathologic diagnosis. GROSS DESCRIPTION: The specimen, labeled "JH," and designated on the requisition "sigmoid portion rectum and left colon," is received in formalin and consists of one unoriented segment of large bowel that is 13.5 cm in length and has an average internal circumference of 5.0 cm. The serosal surface is pink and focally congested with adherent red membranous tissue. The mucosal surface is pink-manuel and finely granular, with the usual folding pattern. Serially sectioning reveals multiple diverticula. One diverticulum is adjacent to a yellow-manuel, chalky nodule that is 1.2 cm in greatest dimension. The bowel wall ranges in thickness from 0.7 cm up to 1.5 cm. No areas of perforation are grossly identified. Oven Dauber sections are submitted in three cassettes. Cassette summary: (A1) Resection margins, shave. (A2) Diverticulum with adjacent nodule. (A3) Diverticula. FB (under the direct supervision of a pathologist) The Gross Description was prepared using a voice recognition system. The report was reviewed for accuracy; however, sound-alike word errors, addition PATIENT NAME: PAYAL LOJA PATHOLOGY DATE OF : 79 REPORT #: [id number] PHYSICIAN: AMADEO MARTINEZ PCP: YOLANDE LA PAC REPORT IS CONFIDENTIAL AND NOT TO BE RELEASED WITHOUT AUTHORIZATION [facility] [address] [place] [address] Signed and/or deletions may occur. If there is any question about this report, please contact Client Services. PERFORMING LABORATORY: The technical component was performed by [facility], [address] [place] [address] (Splitting Machine Feeder: Daisy Pickens MD; CLIA# [id number]). Professional interpretation was performed by [email or web address], [address] [place] [address] (Splitting Machine Feeder: Shabbir Vance MD; CLIA# [id number]). Diagnostician: Shabbir Vance MD Pathologist Electronically Signed 04/15/2019 Copies: ~ PATIENT NAME: PAYAL LOJA PATHOLOGY DATE OF : 79 REPORT #: [id number] PHYSICIAN: AMADEO PATHOLOGY PCP: YOLANDE LA PAC REPORT IS CONFIDENTIAL AND NOT TO BE RELEASED WITHOUT AUTHORIZATION
--- NOTE | 2019-04-15 16:12 | NUR ---
PT AMBULATING IN HALLS WITH SLOW BUT STEADY GAIT. PT REPORTS NAUSEA. PT REQUESTED AND RECEIVED IV ZOFRAN ONCE BACK IN ROOM. PT NOW RESTING IN SEMIFOWLERS POSITION IN BED, PT REPORTS THAT SHE HAS BEEN PASSING GAS AND THAT SHE CONTINUES TO HAVE SMALL LOOSE STOOLS WELL.
--- NOTE | 2019-04-15 18:35 | NUR ---
Pt up ambulating in halls reports some pain to abdomen. Pt reqeusted and received prn po ibuprofen. Call light and h2o in reach.
--- NOTE | 2019-04-15 20:43 | NUR ---
pt awake, coop with assessment. IVf infusing R hanf, LEGAL PROCESS SPECIALIST with good pain relief. On room air. Midline abd dressing with Mepilex and opsite dressing in place with old shadowing inplace. L PAULINO with ss drainage. insertion site covered with gauze and opsite, old drainage inplace. Declines SCDS at this time as she is been moving aroung in room, No c/o pain at this time. No n/v
--- NOTE | 2019-04-15 21:54 | NUR ---
c/o 10/19 abd pain, medicated with Tylenol 650mg . Pt ambulated hallways earlier, tolerated well
--- NOTE | 2019-04-16 01:43 | NUR ---
Resting, no c/o pain, using TERMITE EXTERMINATOR HELPER Dilaudid with good pain relief. scds off at her request. tolerating full liquids diet well, no c/o n/v
--- NOTE | 2019-04-16 04:30 | NUR ---
PT HAS SLEPT 4-6 HRS THIS SHIFT. HAS BEEN USING CANE STRIPPER DILAUDID. HAS BEEN MEDICATED WITH MOTRIN AND TYLENOL PER ABD PAIN WITH GOOD PAIN RELIEF. MID ABD MEPILEX AND OPSITE DRESSING WITH OLD DRAINAGE. PATEL BOWEL TONES, PASSING GAS AND HAS HAD BMS.PAULINO INTACT/PATENT DRAINING SEROSANGUINEOUS DRAINAGE. DRESSING WITH OLD DRAINAGE. ICE TO ABD. WAS MEDICATED WITH ZOFRAN X1 PER C/O PATEL HEAVING. NO EMESIS NOTED. PT ON FULL LIQUIDS. GETS UP TO BR WITH MINIMUM TO NO HELP. IVF INFUSING W/O PROBLEMS, CALL LIGHT AT BEDSIDE, CURRENTLY RESTING, EYES CLOSED, RESP EVEN AND UNLABORED
--- NOTE | 2019-04-16 07:45 | NUR ---
PATIENT UP AMBULATING IN HALLWAY THEN BACK TO BED. PATIENT COMPLAINS OF NAUSEA AND REQUEST ANTINAUSEA MEDICATION. NO OTHER NEEDS AT THIS TIME CALL BUTTON IN REACH. RN NOTIFIED.
--- NOTE | 2019-04-16 07:50 | NUR ---
0722: PT RESTING IN HER BED AND SHE STATES SHE HAS SOME ABD PAIN BUT THAT IT IS CONTROLED. CALL MEYER WITHIN REACH. DRESSING HAVE OLD DRAINAGE NOTED BUT NO NEW DRAINAGE. THE SKIN AROUND THE DRESSING APPEARS HEALTHY. PAULINO DRAIN EMPTIED FOR 30 ML.
--- NOTE | 2019-04-16 09:16 | NUR ---
PT RESTING IN HER BED AND SHE STATES HER ABD PAIN IS ACCEPTABLE TO HER AT THIS TIME. DRESSINGS REMAIN INTACT. CALL MEYER WITHIN REACH.
--- NOTE | 2019-04-16 10:00 | NUR ---
SPOKE WITH PATIENT IN ROOM. PATIENT HAS NO QUESTIONS AND FEELS SAFE TO RETURN HOME AT DISCHARGE. WILL LET US KNOW IF ANY NEEDS ARISE. WILL FOLLOW NEEDED.
--- NOTE | 2019-04-16 10:29 | NUR ---
Pt up at the sink putting in her contacts. He spouse is present and she states she is doing well and that her pain is controled at this time. Her spouse states that the Hannah is "much stronger" today.
--- NOTE | 2019-04-16 10:37 | NUR ---
YESTERDAY SET PATIENT UP FOR A SHOWER. YESTERDAY SHE SAID SHE WOULD TAKE ONE IF SHE FELT UP TO IT. SHE ALSO WALKED 5 LAPS AROUND MED SURG WITH HER .
--- NOTE | 2019-04-16 11:24 | NUR ---
PT JUST AMBULATED IN THE HALLS AND WALKED A LAP. UPON RETURNING TO HER ROOM SHE STATES HER PAIN HAS INCREASED TO A 6. SHE ALSO STATES SHE HAS SOME NAUSEA AND SHE WAS MEDICATED FOR BOTH. PAYAL STATES THAT SHE WANTED IBUPROFEN SHE IS TRYING TO USE HER DILAUDID ARTIFICIAL INTELLIGENCE SPECIALIST LESS. SEE EMAR.
--- NOTE | 2019-04-16 12:49 | NUR ---
PT SITTING UP IN BED, ALERT AND ORIENTED. SHE IS HAVING A MUCH BETTER DAY. PAIN IS MUCH MORE UNDER CONTROL. GAVE PT Latosha RUIZ AND PRISCILLA. SERENE CAME IN-GAVE BLESSING. WILL FOLLOW NEEDED
--- NOTE | 2019-04-16 12:50 | NUR ---
PAULINO DRESSING AND DRAIN AND COVERED WITH A BANDAID AND MID LINE DRESSING REMOVED BY DR ALCANTARA. THE BANDAID IS CDI AND THERE IS SERI-STRIPS IN PLACE TO THE MIDLINE SITE WITH OLD DRAINAGE NOTED. NO NOTED S/S OF INFECTION. PT NOW PLAYING CARDS WITH HER AND SHE STATES HER PAIN AND NAUSEA ARE CONTROLED.
--- NOTE | 2019-04-16 14:19 | NUR ---
PATIENT SALINE LOCKED. DILAUDID EMERGENCY MEDICAL TECHNICIAN BASIC CLEARED 2.1MG USED.
--- NOTE | 2019-04-16 15:52 | NUR ---
1520: Pt sleeping, pt's spouse remains in the room.
--- NOTE | 2019-04-16 16:33 | NUR ---
Pt requested some Ibuprofen but it is too soon for her next dose. She was notified of this and states that she wishes to not take any dilaudid and states her pain is not that bad and will wait for the Ibuprofen. Pt just returned to her room following a walk in the halls. She has walked 5 laps so far today.
--- NOTE | 2019-04-16 17:31 | NUR ---
MIDLINE DRESSING, PAULINO DRAIN AND DRESSING BOTH REMOVED BY DR ALCANTARA TODAY AND A BANDAID WAS PLACED TO THE PAULINO SITE. STERI-STRIPS REMAIN WITH OLD DRY DRAINAGE NOTED AND NO S/S OF INFECTION. IV FLUID DC'D WELL RESIDENTIAL RECYCLE DRIVER. SINCE RESIDENTIAL RECYCLE DRIVER WAS REMOVED THE PT'S PAIN HAS BEEN CONTROLED WELL WITH TYLENOL AND IBUPROFEN. PT HAD SOME NAUSEA THIS AM WHICH ZOFRAN COVERED WELL AND SHE HAS TOLERATED HER CLEAR LIQUID LUNCH WELL. PT HAS BEEN UP SEVERAL TIMES AND HAS WALKED 5 LAPS IN THE HALLS TODAY. VITAL SIGNS REMAIN STABLE TODAY.
--- NOTE | 2019-04-16 20:59 | NUR ---
Coop with assessment, Up to br, voided clear yellow urine, had small bm. back to bed, independent. SL RAC intact, flushed well. c/o 6/10 abd pain, medicated with Dilaudid 4mg po and Tylenol 1000mg po, mid abd incision well aprrox, dry, ss with old drainage inplace. old PAULINO site with old drainage, abd soft tender, upper abd sligh distention, passing gas. Tolerating fluids and diet well, no c/o n/v. watching tv, call light at bedside. Bed alarm on as this is pts few Dilaudid dose, will reassess in one hour
--- NOTE | 2019-04-16 21:06 | NUR ---
MULTI MEDIA SPECIALIST ROUNDING NOTE. PT'S PRIMARY RN IN ROOM PERFORMING ASSESSMENT. PT DISCUSSES CURRENT STAY, PLAN FOR DC. ICE WATER REFILLED AND DIRTY DISHES REMOVED FROM ROOM. PT DENIES FURTHER NEEDS FROM THIS PAPER MILL SUPERINTENDENT. WHITE BOARD UDPATED. CALL LIGHT IN REACH, PRIMARY RN REMAINS IN ROOM.
--- NOTE | 2019-04-16 23:07 | NUR ---
PT WALKING HALLWAYS, NO FURTHER C/O PAIN OR N/V.
--- NOTE | 2019-04-17 01:14 | NUR ---
RESTING, EYES CLOSED, RESP EVEN UNLABORED, CALL LIGHT AT BEDSIDE
--- NOTE | 2019-04-17 04:08 | NUR ---
Resting, laying on her L side, eyes closed, resp even and unlabored.
--- NOTE | 2019-04-17 05:28 | NUR ---
Has slept all night, walked hallways, passing gas and had bm. Midline abd incision with steri strips withold drainage inplace. abd tender. Was medicated x1 with motrin and dilaudid with good pain relief. Toleratiang diet and fluids. no c/o n/v or further c/o pain. Continues on full liquid diet
--- NOTE | 2019-04-17 06:26 | NUR ---
Awakes easily, no c/o pain, has slept most of this shift, up to br, voiding QS urine. abd incision intact.
--- NOTE | 2019-04-17 07:21 | NUR ---
RECIEVED BEDSIDE REPORT FROM BILL CASAS. PT IS SLEEPING SOUNDLY.
--- NOTE | 2019-04-17 09:31 | NUR ---
PT HAS BEEN UP WALKING IN THE HALLS X2. REPORTS NO PAIN AT REST, 5/10 WITH MOVEMENT. IV IS LEAKING WITH FLUSH.
[2019-04-17] MEDS ORDERED: TYLENOL EXTRA500 MG PO (09:54)
[2019-04-17] MEDS ORDERED: IBUPROFEN600 MG PO (09:54)
[2019-04-17] MEDS ORDERED: HYDROMORPHONE HC4 MG PO (09:54)
[2019-04-17] MEDS ORDERED: ZOFRAN4 MG PO (10:02)
--- NOTE | 2019-04-17 11:10 | NUR ---
PT DISCHARGE TEACHING COMPLETE. DISCUSSED WHEN TO CALL THE DR, FOLLOW UP, ACTIVITY, MEDS. PT VERBALIZED UNDERSTANDING. PT WAS WHEELED OUT OF THE HOSPITAL IN BY [facility].
--- NOTE | 2019-04-18 14:20 | DS ---
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 Hospitalization has been required in the past and she has had multiple episodes over time. She is admitted at this time to undergo elective left colectomy for recurrent diverticulitis. PERTINENT PHYSICAL EXAMINATION: Pleasant white woman, mildly obese with exam showing a normal head, neck, chest, and abdomen. Extremities without edema. HOSPITAL COURSE: On April 13, 2019, she underwent left colectomy with side-to-end coloproctostomy and mobilization of splenic flexure. She was found to have multiple diverticula of the sigmoid colon. Pathologic specimen confirmed multiple diverticula and peridiverticular thickening of the mesentery consistent with chronic recurrent acute diverticulitis. Postoperatively, she had a fair amount of incisional pain despite having a TAP block preoperatively. The pain was distributed just above the umbilicus, likely out of the range of the typical TAP block. She was ultimately managed with a Dilaudid PHARMACY ASSOCIATE. She was transitioned promptly to oral Tylenol from IV Tylenol and oral Motrin from IV Toradol, and ultimately transitioned to oral Dilaudid. She had prompt resumption of her bowel function within 24 hours and was given a clear liquid diet the night of surgery. She progressed in her dietary management to a full liquid diet and mechanical soft diet. By the day of discharge, she is ambulating well, tolerating the diet, still has some diarrhea, but certainly bowel movements and incisional pain is well managed with oral analgesics. A drain that was placed in the pelvis was removed well prior to discharge. FOLLOWUP PLAN: She is return to see me in approximately 4 weeks. Back to work. Paperwork has been arranged for about that time frame as well. She was advised to lift no more than 20 pounds for the next 4 weeks. She should ambulate on a daily basis. DISCHARGE MEDICATIONS: 1. Ibuprofen 600 mg p.o. q.6 hours as needed for pain, #60. 2. Dilaudid 4 mg tablets one to two q.4 hours as needed for pain, #20. 3. Tylenol Extra Strength 500 mg two tablets p.o. q.6 hours as needed for pain, #60, refill 1. Electronically Signed By: OLU ALCANTARA MD 04/18/19 1420 PATIENT NAME: PAYAL LOJA DISCHARGE SUMMARY DATE OF : 79 REPORT #: [id number] PHYSICIAN: OLU ALCANTARA MD PCP: YOLANDE LA PAC REPORT IS CONFIDENTIAL AND NOT TO BE RELEASED WITHOUT AUTHORIZATION [address] [address] Signed 4. She will continue with her citalopram (Celexa) 10 mg p.o. at bedtime. 5. Trazodone 100 mg tablets half tab p.o. at bedtime as needed for sleep. 6. Albuterol nebulizer two puffs q.6 hours as needed for shortness of breath or wheezing. 7. Additionally, she will have Zofran 4 mg dissolving tablet one p.o. q.6 hours as needed for nausea, #30. DISCHARGE DIAGNOSES: 1. Chronic recurrent acute sigmoid and left-sided diverticulitis. 2. Status post left colectomy with mobilization of splenic flexure and side-to-end coloproctostomy, April 13, 2019. 3. Reactive airways. 4. Anxiety. MD JAGDISH Rogers/BETHANYL /[id number] cc: JYOTI Bell MD Copies: OLU ALCANTARA MD ~ Electronically Signed By: OLU ALCANTARA MD 04/18/19 1420 PATIENT NAME: PAYAL LOJA DISCHARGE SUMMARY DATE OF : 79 REPORT #: [id number] PHYSICIAN: OLU ALCANTARA MD PCP: YOLANDE [facility] REPORT IS CONFIDENTIAL AND NOT TO BE RELEASED WITHOUT AUTHORIZATION
== END 2019-04-17 11:05 | disposition home or self-care (01) | DRG 331 ==
LOC: MS 04-13 08:15 → DSVR 04-13 08:50 → MS 04-13 14:40
PROVIDERS: ADMIT Surgery
PROC: 3E0T3BZ Introduction of Anesthetic Agent into Peripheral Nerves and Plexi, Percutaneous Approach (ICD-10-PCS; 2019-04-13)
PROC: 0DTG0ZZ Resection of Left Large Intestine, Open Approach (ICD-10-PCS; principal; 2019-04-13 08:30)
DX: K57.32 Diverticulitis of large intestine without perforation or abscess without bleeding (principal); G89.18 Other acute postprocedural pain; E66.9 Obesity, unspecified; F41.9 Anxiety disorder, unspecified; J45.909 Unspecified asthma, uncomplicated; Z68.26 Body mass index [BMI] 26.0-26.9, adult; Z88.0 Allergy status to penicillin; Z88.1 Allergy status to other antibiotic agents; Z79.51 Long term (current) use of inhaled steroids; Z79.899 Other long term (current) drug therapy
CPT/HCPCS: 00790; 36415; 64488; 76942; 80048; 85025; A9270; J0131; J1100; J1170; J1200; J1644; J1885; J2405; J2550; J2704; J2795; J3010; J3490; J7121